=== PATIENT | male | born 1995 | race Two or more races ===

== ENCOUNTER 2021-07-06 05:29 | Emergency (ER) | payer OTHER ==
[~2021-07-06] VITALS: Ht 172.7 cm; Wt 65.8 kg
[2021-07-06] MEDS ORDERED: KETO10TA2 PO (07:06)
== END 2021-07-06 07:23 ==
LOC: ER 05:29
DX: S49.90XA Unspecified injury of shoulder and upper arm, unspecified arm, initial encounter (principal); S29.9XXA Unspecified injury of thorax, initial encounter; W18.30XA Fall on same level, unspecified, initial encounter; Y92.89 Other specified places as the place of occurrence of the external cause